=== PATIENT | male | born 1980 | race Caucasian/White ===

== ENCOUNTER 2020-07-11 16:20 | Inpatient (IN) | payer OTHER ==
[~2020-07-11] VITALS: Ht 187.9 cm; Wt 86.2 kg
[2020-07-11 17:40] LABS: BASO % 0.4 % (0.0-1.0); EOS # 0.3 10*3/uL (0.0-0.4); EOS % 3.8 % (1.0-4.0); HEMATOCRIT 38.3 % (42.0-52.0); LYMPH # 1.9 10*3/uL (1.3-4.4); LYMPH % 23.8 % (27.0-41.0); MEAN CELL VOLUME 89.7 fl (80.0-94.0); MEAN CORPUSCULAR HGB 30.7 pg (27.0-31.0); MEAN CORPUSCULAR HGB CONC 34.2 g/dl (33.0-37.0); MEAN PLATELET VOLUME 11.4 fl (9.6-12.3); NEUT # 4.6 10*3/uL (2.3-7.9); NEUT % 58.7 % (47.0-73.0); PLATELET COUNT AUTOMATED 128 10*3/uL (130-400); RED BLOOD COUNT 4.27 10*6/uL (4.50-5.90); RED CELL DISTRI WIDTH 11.6 % (0-14.5); WHITE BLOOD COUNT 7.8 10*3/uL (4.8-10.8)
[2020-07-11 17:50] LABS: INTERNATIONAL NORM RATIO 1.1 (2.0-3.5)
[2020-07-11 17:52] LABS: ALBUMIN 3.1 gm/dl (3.1-4.5); ALKALINE PHOSPHATASE 60 U/L (45-117); BUN 9 mg/dl (7-24); CHLORIDE 105 mmol/L (98-107); CREATININE 0.95 mg/dL (0.70-1.30); POTASSIUM 4.1 mmol/L (3.5-5.1); SGOT/AST 48 IU/L (3-35); SGPT/ALT 93 U/L (12-78); SODIUM 136 mmol/L (136-145); TOTAL PROTEIN 7.3 gm/dL (6.4-8.2)
[2020-07-11 18:04] LABS: ETHYL ALCOHOL < 3.0 mg/dl (<3)
[2020-07-11 18:13] VITALS: BP 98/56
[2020-07-11 19:20] LABS: BILIRUBIN Negative (Negative); BLOOD Negative (Negative); CLARITY Clear (Clear); COLOR Yellow (Yellow); GLUCOSE Negative (Negative); KETONE Negative (Negative); LEUKO ESTERASE Negative (Negative); NITRITE Negative (Negative); PH 5.5 (4.5-8.0); UROBILINOGEN 0.2 E.U./dl (0.0-1.0)
[2020-07-11 19:29] LABS: URINE AMPHETAMINES > 1000 (1000ng/ml); URINE BARBITURATES < 200 (200ng/ml); URINE BENZODIAZEPINES < 200 (200ng/ml); URINE CANNABINOIDS (THC) > 50 (50ng/ml); URINE COCAINE > 300 (300ng/ml); URINE METHADONE < 300 (300ng/ml); URINE OPIATES > 300 (300ng/ml)
[2020-07-11 19:30] LABS: URINE PHENCYCLIDINE < 25 (25ng/ml)
[2020-07-11 19:35] LABS: BACTERIA TRACE; EPITHELIAL CELLS 0-2
[2020-07-11 20:00] VITALS: BP 108/69
[2020-07-12] VITALS: BP 136/66
[2020-07-12 04:00] VITALS: BP 108/53
[2020-07-12 08:00] VITALS: BP 120/68
[2020-07-12 16:00] VITALS: BP 125/52
[2020-07-12 20:00] VITALS: BP 115/65
[2020-07-13 08:00] VITALS: BP 105/52
== END 2020-07-13 14:19 | disposition left against medical advice (07) | DRG 770 ==
LOC: 5E 16:20
PROVIDERS: Internal Medicine; ADMIT Internal Medicine; ATTEND Internal Medicine
DX: F11.23 Opioid dependence with withdrawal (principal); F17.210 Nicotine dependence, cigarettes, uncomplicated; F31.9 Bipolar disorder, unspecified; B18.2 Chronic viral hepatitis C; G25.81 Restless legs syndrome; D64.9 Anemia, unspecified; Z53.29 Procedure and treatment not carried out because of patient's decision for other reasons; R74.01 Elevation of levels of liver transaminase levels; R73.9 Hyperglycemia, unspecified; Z81.3 Family history of other psychoactive substance abuse and dependence; Z71.6 Tobacco abuse counseling